=== PATIENT | male | born 1990 | race African-American/Black ===

== ENCOUNTER 2019-08-24 11:17 | Emergency (ER) | payer BC ==
--- NOTE | 2019-08-24 11:38 | ED ---
Psych HPI - General Source: patient, RN notes reviewed Mode of arrival: ambulatory Limitations: no limitations <Sukhdeep Shannon - Last Filed: 08/24/19 11:37> <Renny Meredith - Last Filed: 08/24/19 17:44> - General Chief Complaint: Psychiatric Symptoms Stated Complaint: Suicidal Time Seen by Provider: 08/24/19 11:26 - History of Present Illness Initial Comments: 29-year-old male presents emergency Department with chief complaint of depression, suicidal ideation. Patient states she's had a rough year states that he losses and, his father has [place]'s disease and is concerned that he has a 50% chance of this. He states his brother was shot and he also had a friend that was killed. Patient states he stopped been coping well he states he basically drinks daily at least 1 pint. Patient does admit to marijuana use but states it's not as frequent as his alcohol use. Has no physical complaints. Patient states he is a concert last week which states it made his symptoms worse. (Sukhdeep Shannon) - Related Data Allergies Allergy/AdvReac Type Severity Reaction Status Date / Time No Known Allergies Allergy Verified 08/24/19 11:19 Review of Systems ROS Other: All systems not noted in ROS Statement are negative. <Sukhdeep Shannon - Last Filed: 08/24/19 11:37> ROS Other: All systems not noted in ROS Statement are negative. <Renny Meredith - Last Filed: 08/24/19 17:44> ROS Statement: Those systems with pertinent positive or pertinent negative responses have been documented in the HPI. Past Medical History Past Medical History: No Reported History History of Any Multi-Drug Resistant Organisms: None Reported Past Surgical History: No Surgical Hx Reported Past Psychological History: Depression Smoking Status: Current some day smoker Past Alcohol Use History: Abuse, Daily, Heavy Past Drug Use History: Marijuana <Sukhdeep Shannon - Last Filed: 08/24/19 11:37> General Exam Limitations: no limitations General appearance: alert, in no apparent distress Head exam: Present: atraumatic, normocephalic, normal inspection Eye exam: Present: normal appearance, PERRL, EOMI. Absent: scleral icterus, conjunctival injection, periorbital swelling ENT exam: Present: normal exam, normal oropharynx, mucous membranes moist Neck exam: Present: normal inspection, full ROM. Absent: tenderness, meningismus, lymphadenopathy Respiratory exam: Present: normal lung sounds bilaterally. Absent: respiratory distress, wheezes, rales, rhonchi, stridor Cardiovascular Exam: Present: regular rate, normal rhythm, normal heart sounds. Absent: systolic murmur, diastolic murmur, rubs, gallop, clicks Neurological exam: Present: alert, oriented X3 Psychiatric exam: Present: depressed, flat affect <Sukhdeep Shannon - Last Filed: 08/24/19 11:37> Course Vital Signs 08/24/19 11:19 Temperature 97.5 F L Pulse Rate 90 Respiratory 18 Rate Blood Pressure 126/79 O2 Sat by Pulse 97 Oximetry Medical Decision Making <Renny Meredith - Last Filed: 08/24/19 17:44> - Medical Decision Making patient seen by mental health services with plan for discharge. Patient reevaluated and resting comfortably in bed. Patient denies suicidal ideation and does contract for safety. (Renny Meredith) - Lab Data Lab Results 08/24/19 Range/Units 12:30 Urine Opiates Screen Not Detected (NotDetected) Ur Oxycodone Screen Not Detected (NotDetected) Urine Methadone Screen Not Detected (NotDetected) Ur Propoxyphene Screen Not Detected (NotDetected) Ur Barbiturates Screen Not Detected (NotDetected) U Tricyclic Antidepress Not Detected (NotDetected) Ur Phencyclidine Scrn Not Detected (NotDetected) Ur Amphetamines Screen Not Detected (NotDetected) U Methamphetamines Scrn Not Detected (NotDetected) U Benzodiazepines Scrn Not Detected (NotDetected) Urine Cocaine Screen Not Detected (NotDetected) U Marijuana (THC) Screen Not Detected (NotDetected) Disposition <Sukhdeep Shannon - Last Filed: 08/24/19 11:37> Is patient prescribed a controlled substance at d/c from ED?: No Time of Disposition: 17:44 <Renny Meredith - Last Filed: 08/24/19 17:44> Clinical Impression: Depression Disposition: HOME SELF-CARE Condition: Stable Instructions (If sedation given, give patient instructions): Depression (ED) Additional Instructions: please follow-up with mental health services as directed. Return for thoughts of self-harm, worsening symptoms or other concerns. Referrals: Kingsley Peña MD [Primary Care Provider] - 1-2 days
[2019-08-24 13:27] LABS: Amphetamine Screen,Urine Not Detected (NotDetected); Barbiturate Screen,Urine Not Detected (NotDetected); Benzodiazepines Screen,Urine Not Detected (NotDetected); Cocaine Screen,Urine Not Detected (NotDetected); Methadone Screen, Urine Not Detected (NotDetected); Opiate Screen,Urine Not Detected (NotDetected); Oxycodone Screen, Urine Not Detected (NotDetected); Phencyclidine Screen,Urine Not Detected (NotDetected); Tricyclic Antidepressant,Urine Not Detected (NotDetected); Urn Cannabinoid Scrn Not Detected (NotDetected)
[2019-08-24 18:01] VITALS: BP 132/99; PULSE 74; RESP 19; TEMP 98
== END 2019-08-24 17:51 | disposition home or self-care (01) ==
LOC: EC 11:17
DX: F32.9 Major depressive disorder, single episode, unspecified (principal); F17.200 Nicotine dependence, unspecified, uncomplicated
CPT/HCPCS: 80306; 82075; 99285